=== PATIENT | female | born 1970 | race Two or more races ===

== ENCOUNTER 2021-10-18 15:31 | Outpatient (REF) | payer OTHER, SELFPAY ==
[2021-10-18 16:20] LABS: Influenza A PCR NEGATIVE (Negative); Influenza B PCR NEGATIVE (Negative); Resp Syncy Virus RNA Qual PCR NEGATIVE (Negative); SARS COV2 PCR INHOUSE NEGATIVE (Negative)
== END 2021-10-18 15:32 | disposition home or self-care (01) ==
LOC: HO.LNP 15:31
PROVIDERS: Visit Provider Internal Medicine
DX: R43.9 Unspecified disturbances of smell and taste (principal); Z20.822 Contact with and (suspected) exposure to COVID-19
CPT/HCPCS: 0241U